=== PATIENT | female | born 1970 | race African-American/Black ===

== ENCOUNTER 2020-02-03 11:42 | Outpatient (CLI) | payer OTHER ==
[~2020-02-03 11:42] MED LIST: CLARITIN10 MG PO; CLARITIN5 MG; SINGULAIR10 MG PO
== END 2020-02-03 12:03 | disposition home or self-care (01) ==
LOC: MAMO-SONO 11:42
PROVIDERS: ATTEND Specialist
DX: Z12.31 Encounter for screening mammogram for malignant neoplasm of breast (principal); N60.11 Diffuse cystic mastopathy of right breast; N60.12 Diffuse cystic mastopathy of left breast

== ENCOUNTER 2021-02-14 10:21 | Outpatient (CLI) | payer OTHER | END 2021-02-14 10:45 | disposition home or self-care (01) | LOC: MAMO-SONO 10:21 | PROVIDERS: ATTEND Specialist | DX: N60.11 Diffuse cystic mastopathy of right breast (principal); Z12.31 Encounter for screening mammogram for malignant neoplasm of breast; N60.12 Diffuse cystic mastopathy of left breast ==

== ENCOUNTER 2022-02-19 07:37 | Outpatient (CLI) | payer OTHER | END 2022-02-19 07:54 | disposition home or self-care (01) | LOC: MAMO-SONO 07:37 | PROVIDERS: ATTEND Obstetrics & Gynecology | DX: N64.4 Mastodynia (principal); N63 Unspecified lump in breast; Z12.31 Encounter for screening mammogram for malignant neoplasm of breast; R10.2 Pelvic and perineal pain ==

== ENCOUNTER 2024-04-01 13:50 | Outpatient (CLI) | payer OTHER | END 2024-04-01 14:00 | disposition home or self-care (01) | LOC: MAMO-SONO 13:50 | PROVIDERS: ATTEND Obstetrics & Gynecology | DX: N64.4 Mastodynia (principal); N63.0 Unspecified lump in unspecified breast; Z12.31 Encounter for screening mammogram for malignant neoplasm of breast ==